=== PATIENT | male | born 1950 | race Caucasian/White ===

== ENCOUNTER → 2016-09-11 | Outpatient (CLI) | payer OTHER | LOC: LAB 08:11 | DX: N18.3 Chronic kidney disease, stage 3 (moderate) (principal); M10.9 Gout, unspecified; I10 Essential (primary) hypertension ==

== ENCOUNTER → 2017-08-07 | Outpatient (CLI) | payer OTHER | LOC: LAB 08:31 | DX: E78.5 Hyperlipidemia, unspecified (principal); Z88.1 Allergy status to other antibiotic agents ==

== ENCOUNTER → 2017-12-11 | Outpatient (CLI) | payer MEDICARE ==
[2017-12-11 08:31] LABS: ALBUMIN 3.8 g/dL (3.5-5.0); BUN/CREATININE RATIO 21.9 (6.0-26.0); POTASSIUM 4.2 mmol/L (3.6-5.0); TOTAL BILIRUBIN 0.4 mg/dL (0.2-1.3); TOTAL PROTEIN 8.1 g/dL (6.3-8.2)
== END ==
LOC: LAB 12-04 08:11
PROVIDERS: Family Medicine
DX: Z00.00 Encounter for general adult medical examination without abnormal findings (principal); I10 Essential (primary) hypertension; N40.0 Benign prostatic hyperplasia without lower urinary tract symptoms; M10.9 Gout, unspecified; J30.9 Allergic rhinitis, unspecified; Z23 Encounter for immunization; Z95.0 Presence of cardiac pacemaker

== ENCOUNTER → 2017-12-13 | Day surgery (SDC) | payer MEDICARE | LOC: MSO 08:10 | DX: Z12.11 Encounter for screening for malignant neoplasm of colon (principal); D12.3 Benign neoplasm of transverse colon; K57.30 Diverticulosis of large intestine without perforation or abscess without bleeding; I10 Essential (primary) hypertension; Z95.0 Presence of cardiac pacemaker; M10.9 Gout, unspecified; Z79.82 Long term (current) use of aspirin; Z79.899 Other long term (current) drug therapy | CPT/HCPCS: 00811; J2704; J7120 ==

== ENCOUNTER → 2018-10-01 | Outpatient (CLI) | payer MEDICARE | LOC: LAB 08:13 | DX: I25.10 Atherosclerotic heart disease of native coronary artery without angina pectoris (principal) ==

== ENCOUNTER → 2019-02-04 | Outpatient (CLI) | payer MEDICARE ==
[2019-02-04 08:41] LABS: ALBUMIN 3.8 g/dL (3.4-4.8)
[2019-02-04 08:42] LABS: POTASSIUM 4.2 mmol/L (3.5-5.1)
[2019-02-04 08:43] LABS: CALCIUM 9.4 mg/dL (8.3-10.5)
[2019-02-04 08:44] LABS: TOTAL PROTEIN 8.5 g/dL (6.2-8.1)
[2019-02-04 08:46] LABS: TOTAL BILIRUBIN 0.4 mg/dL (0.2-1.2)
== END ==
LOC: LAB 07:22
PROVIDERS: Family Medicine
DX: Z00.00 Encounter for general adult medical examination without abnormal findings (principal); Z23 Encounter for immunization; J30.1 Allergic rhinitis due to pollen; N40.0 Benign prostatic hyperplasia without lower urinary tract symptoms; M10.9 Gout, unspecified; I10 Essential (primary) hypertension; Z95.0 Presence of cardiac pacemaker

== ENCOUNTER → 2019-02-06 | Outpatient (CLI) | payer MEDICARE ==
[2019-02-06 17:55] LABS: URINE APPEARANCE CLEAR; URINE BILIRUBIN NEGATIVE (NEGATIVE); URINE BLOOD NEGATIVE (NEGATIVE); URINE COLOR YELLOW; URINE GLUCOSE NEGATIVE (NEGATIVE); URINE KETONE NEGATIVE (NEGATIVE); URINE NITRATE NEGATIVE (NEGATIVE); URINE PROTEIN(semi-quant) TRACE mg/dL (NEGATIVE); URINE UROBILINOGEN NORMAL (NORMAL)
[2019-02-06 17:56] LABS: URINE LEUKOCYTE ESTERASE NEGATIVE (NEGATIVE); URINE MUCUS PRESENT (NOT PRESENT)
== END ==
LOC: LAB 17:34
PROVIDERS: Family Medicine
DX: I12.9 Hypertensive chronic kidney disease with stage 1 through stage 4 chronic kidney disease, or unspecified chronic kidney disease (principal); N18.3 Chronic kidney disease, stage 3 (moderate); M10.9 Gout, unspecified

== ENCOUNTER → 2019-10-03 | Outpatient (CLI) | payer MEDICARE | LOC: LAB 07:54 | DX: I10 Essential (primary) hypertension (principal) ==

== ENCOUNTER → 2020-02-05 | Outpatient (CLI) | payer MEDICARE ==
[2020-02-05 08:10] LABS: POTASSIUM 4.2 mmol/L (3.5-5.1)
[2020-02-05 08:11] LABS: ALBUMIN 3.8 g/dL (3.4-4.8)
[2020-02-05 08:12] LABS: CALCIUM 9.3 mg/dL (8.3-10.5)
[2020-02-05 08:13] LABS: TOTAL PROTEIN 7.5 g/dL (6.2-8.1)
[2020-02-05 08:15] LABS: TOTAL BILIRUBIN 0.4 mg/dL (0.2-1.2)
== END ==
LOC: LAB 07:49
DX: Z00.00 Encounter for general adult medical examination without abnormal findings (principal); Z13.6 Encounter for screening for cardiovascular disorders; Z23 Encounter for immunization; I10 Essential (primary) hypertension; N40.0 Benign prostatic hyperplasia without lower urinary tract symptoms; M10.9 Gout, unspecified; J30.1 Allergic rhinitis due to pollen; Z95.0 Presence of cardiac pacemaker

== ENCOUNTER → 2020-05-14 | Outpatient (CLI) | payer MEDICARE ==
[2020-05-14 09:09] LABS: POTASSIUM 4.5 mmol/L (3.5-5.1)
[2020-05-14 09:10] LABS: CALCIUM 9.9 mg/dL (8.3-10.5)
== END ==
LOC: LAB 08:48
PROVIDERS: Family Medicine
DX: N18.31 Chronic kidney disease, stage 3a (principal); M10.9 Gout, unspecified

== ENCOUNTER → 2020-06-06 | Outpatient (CLI) | payer MEDICARE | LOC: RAD 08:24 | DX: Q61.3 Polycystic kidney, unspecified (principal); N28.81 Hypertrophy of kidney; K76.89 Other specified diseases of liver ==

== ENCOUNTER → 2020-07-09 | Outpatient (CLI) | payer MEDICARE ==
[2020-07-09 08:24] LABS: HEMATOCRIT 39.7 % (42.0-52.0); HEMOGLOBIN 12.8 g/dL (13.5-18.0); MEAN CELL VOLUME 93 fl (78-100); MEAN CORPUSCULAR HEMOGLOBIN 30 pg (27-31); MEAN CORPUSCULAR HGB CONC 32 g/dL (33-37); MEAN PLATELET VOLUME 8.6 fl (7.4-10.4); PLATELET COUNT 179 K/mm3 (130-400); RED BLOOD COUNT 4.26 M/mm3 (4.20-5.60); RED CELL DISTRIBUTION WIDTH 13.2 % (11.5-14.5); WHITE BLOOD COUNT 5.6 K/mm3 (4.8-10.8)
[2020-07-09 08:32] LABS: URINE APPEARANCE CLEAR; URINE BILIRUBIN NEGATIVE (NEGATIVE); URINE BLOOD 50 ery/uL (NEGATIVE); URINE COLOR YELLOW; URINE GLUCOSE NEGATIVE (NEGATIVE); URINE KETONE NEGATIVE (NEGATIVE); URINE LEUKOCYTE ESTERASE NEGATIVE (NEGATIVE); URINE NITRATE NEGATIVE (NEGATIVE); URINE PROTEIN(semi-quant) 1+ mg/dL (NEGATIVE); URINE UROBILINOGEN NORMAL (NORMAL)
[2020-07-09 08:34] LABS: ALBUMIN 3.8 g/dL (3.4-4.8); POTASSIUM 4.4 mmol/L (3.5-5.1)
[2020-07-09 08:37] LABS: TOTAL PROTEIN 7.8 g/dL (6.2-8.1)
[2020-07-09 08:38] LABS: TOTAL BILIRUBIN 0.6 mg/dL (0.2-1.2)
[2020-07-09 08:57] LABS: LYMPHOCYTE 27 % (20-51); MONOCYTE 14 % (3-10); NEUTROPHILS 52 % (42-75)
== END ==
LOC: LAB 07:48
PROVIDERS: Internal Medicine Nephrology
DX: I12.9 Hypertensive chronic kidney disease with stage 1 through stage 4 chronic kidney disease, or unspecified chronic kidney disease (principal); N18.32 Chronic kidney disease, stage 3b; N20.0 Calculus of kidney; N40.1 Benign prostatic hyperplasia with lower urinary tract symptoms

== ENCOUNTER → 2021-01-10 | Outpatient (CLI) | payer MEDICARE ==
[2021-01-10 10:00] LABS: POTASSIUM 4.7 mmol/L (3.5-5.1)
[2021-01-10 10:01] LABS: CALCIUM 9.5 mg/dL (8.3-10.5)
== END ==
LOC: LAB 09:02
PROVIDERS: Internal Medicine Nephrology
DX: N20.0 Calculus of kidney (principal); M10.9 Gout, unspecified; I12.9 Hypertensive chronic kidney disease with stage 1 through stage 4 chronic kidney disease, or unspecified chronic kidney disease; N18.31 Chronic kidney disease, stage 3a

== ENCOUNTER → 2021-02-20 | Outpatient (CLI) | payer MEDICARE ==
[2021-02-20 08:27] LABS: POTASSIUM 4.1 mmol/L (3.5-5.1)
[2021-02-20 08:28] LABS: CALCIUM 10.5 mg/dL (8.3-10.5)
[2021-02-20 08:30] LABS: TOTAL PROTEIN 8.2 g/dL (6.2-8.1)
[2021-02-20 08:32] LABS: TOTAL BILIRUBIN 0.5 mg/dL (0.2-1.2)
== END ==
LOC: LAB 07:38
PROVIDERS: Family Medicine
DX: Z13.220 Encounter for screening for lipoid disorders (principal); N40.0 Benign prostatic hyperplasia without lower urinary tract symptoms; M10.9 Gout, unspecified; I10 Essential (primary) hypertension

== ENCOUNTER 2021-08-19 22:58 | Emergency (ER) | payer MEDICARE ==
[~2021-08-19] VITALS: Ht 172.7 cm; Wt 113.6 kg
[2021-08-19] MEDS ORDERED: XARELTO20 MG PO (23:19)
[2021-08-19] MEDS ORDERED: NORVASC 5MG5 MG/TAB PO (23:19)
[2021-08-19] MEDS ORDERED: VITAMIN D325 MC6 PO (23:19)
[2021-08-19] MEDS ORDERED: ALLEGRA ALLERG180 MG PO (23:20)
[2021-08-19] MEDS ORDERED: BENICAR20 MG PO (23:20)
[2021-08-19] MEDS ORDERED: LIPITOR 40MG TA40 MG PO (23:20)
[2021-08-19] MEDS ORDERED: ALLOPURINOL300 M1 PO (23:20)
[2021-08-19 23:54] LABS: URINE COLOR BLOODY
[2021-08-19 23:55] LABS: URINE APPEARANCE BLOODY; URINE BILIRUBIN NEGATIVE (NEGATIVE); URINE BLOOD 250 ery/uL (NEGATIVE); URINE KETONE NEGATIVE (NEGATIVE); URINE NITRATE NEGATIVE (NEGATIVE); URINE PROTEIN(semi-quant) 3+ (NEGATIVE); URINE UROBILINOGEN NORMAL (NORMAL)
[2021-08-20 00:20] LABS: BASO # 0.03 K/mm3 (0.02-0.10); EOS # 0.26 K/mm3 (0.04-0.40); EOS % 3.9 % (0.0-4.0); HEMATOCRIT 35.6 % (42.0-52.0); HEMOGLOBIN 11.9 g/dL (13.5-18.0); LYMPH# 1.49 K/mm3 (1.50-4.00); MEAN CELL VOLUME 92 fl (78-100); MEAN CORPUSCULAR HEMOGLOBIN 31 pg (27-31); MEAN CORPUSCULAR HGB CONC 33 g/dL (33-37); MEAN PLATELET VOLUME 9.1 fl (7.4-10.4); MONO # 0.84 K/mm3 (0.20-0.80); NEU # 3.96 K/mm3 (1.40-6.50); PLATELET COUNT 193 K/mm3 (130-400); RED BLOOD COUNT 3.86 M/mm3 (4.20-5.60); RED CELL DISTRIBUTION WIDTH 13.4 % (11.5-14.5); WHITE BLOOD COUNT 6.6 K/mm3 (4.8-10.8)
[2021-08-20 00:25] LABS: ALBUMIN 3.8 g/dL (3.4-4.8)
[2021-08-20 00:27] LABS: CALCIUM 9.4 mg/dL (8.3-10.5)
[2021-08-20 00:28] LABS: TOTAL PROTEIN 7.4 g/dL (6.2-8.1)
[2021-08-20 00:30] LABS: TOTAL BILIRUBIN 0.2 mg/dL (0.2-1.2)
[2021-08-20 00:32] LABS: PARTIAL THROMBOPLASTIN TIME 31.9 SECONDS (21.0-32.0)
[2021-08-20 06:27] LABS: HEMATOCRIT 36.1 % (42.0-52.0); HEMOGLOBIN 12.1 g/dL (13.5-18.0)
[2021-08-20 07:33] VITALS: BP 146/78
== END 2021-08-20 07:33 | disposition home or self-care (01) ==
LOC: ED 22:58
PROVIDERS: Nurse Practitioner
DX: S37.22XA Contusion of bladder, initial encounter (principal); X58.XXXA Exposure to other specified factors, initial encounter
CPT/HCPCS: J7030

== ENCOUNTER → 2021-10-13 | Outpatient (CLI) | payer MEDICARE ==
[~2021-10-13] MED LIST: ALLEGRA ALLERG180 MG PO; ALLOPURINOL300 M1 PO; BENICAR20 MG PO; LIPITOR 40MG TA40 MG PO; NORVASC 5MG5 MG/TAB PO; VITAMIN D325 MC6 PO; XARELTO20 MG PO
[2021-10-13 12:34] LABS: ALBUMIN 4.1 g/dL (3.4-4.8)
[2021-10-13 12:36] LABS: CALCIUM 9.2 mg/dL (8.3-10.5)
== END ==
LOC: LAB 10:11
PROVIDERS: Internal Medicine Nephrology
DX: Q61.3 Polycystic kidney, unspecified (principal); N25.81 Secondary hyperparathyroidism of renal origin; N18.32 Chronic kidney disease, stage 3b

== ENCOUNTER 2021-11-19 12:16 | Emergency (ER) | payer MEDICARE ==
[2021-11-19] MEDS ORDERED: ELIQUIS5 MG PO (12:30)
[2021-11-19] MEDS ORDERED: AMLODIPINE BESYL5 MG PO (12:30)
[2021-11-19] MEDS ORDERED: ATENOLOL50 MG PO (12:30)
[2021-11-19] MEDS ORDERED: TRAMADOL 50 MG TAB PO (13:33)
[2021-11-19 14:03] VITALS: BP 140/86
== END 2021-11-19 13:36 | disposition home or self-care (01) ==
LOC: ED 12:16
DX: R10.31 Right lower quadrant pain (principal); I48.20 Chronic atrial fibrillation, unspecified; Z79.01 Long term (current) use of anticoagulants; W11.XXXA Fall on and from ladder, initial encounter

== ENCOUNTER → 2021-12-05 | Outpatient (CLI) | payer MEDICARE ==
[~2021-12-05] MED LIST changes: +AMLODIPINE BESYL5 MG PO; +ATENOLOL50 MG PO; +ELIQUIS5 MG PO; +TRAMADOL 50 MG TAB PO
[2021-12-05 15:59] LABS: POTASSIUM 4.3 mmol/L (3.5-5.1)
[2021-12-05 16:01] LABS: CALCIUM 10.2 mg/dL (8.3-10.5)
== END ==
LOC: LAB 15:07
PROVIDERS: Family Medicine
DX: N18.9 Chronic kidney disease, unspecified (principal); M25.551 Pain in right hip

== ENCOUNTER → 2022-04-29 | Outpatient (CLI) | payer MEDICARE ==
[2022-04-29 07:39] LABS: POTASSIUM 4.8 mmol/L (3.5-5.1)
[2022-04-29 07:40] LABS: ALBUMIN 3.9 g/dL (3.4-4.8)
[2022-04-29 07:41] LABS: CALCIUM 9.4 mg/dL (8.3-10.5)
[2022-04-29 07:42] LABS: TOTAL PROTEIN 7.6 g/dL (6.2-8.1)
[2022-04-29 07:44] LABS: TOTAL BILIRUBIN 0.2 mg/dL (0.2-1.2)
== END ==
LOC: LAB 07:09
PROVIDERS: Family Medicine
DX: Z13.220 Encounter for screening for lipoid disorders (principal); I12.9 Hypertensive chronic kidney disease with stage 1 through stage 4 chronic kidney disease, or unspecified chronic kidney disease; N18.32 Chronic kidney disease, stage 3b; N25.81 Secondary hyperparathyroidism of renal origin; Q61.3 Polycystic kidney, unspecified; M10.9 Gout, unspecified

== ENCOUNTER → 2023-04-05 | Outpatient (CLI) | payer MEDICARE ==
[2023-04-05 16:29] LABS: ALBUMIN 4.2 g/dL (3.4-4.8)
[2023-04-05 16:30] LABS: CALCIUM 9.6 mg/dL (8.3-10.5)
[2023-04-05 16:32] LABS: TOTAL PROTEIN 8.2 g/dL (6.2-8.1)
[2023-04-05 16:33] LABS: BASO # 0.04 K/mm3 (0.02-0.10); EOS # 0.23 K/mm3 (0.04-0.40); EOS % 3.5 % (0.0-4.0); HEMATOCRIT 40.3 % (42.0-52.0); HEMOGLOBIN 13.5 g/dL (13.5-18.0); LYMPH# 1.22 K/mm3 (1.50-4.00); MEAN CELL VOLUME 93 fl (78-100); MEAN CORPUSCULAR HEMOGLOBIN 31 pg (27-31); MEAN CORPUSCULAR HGB CONC 34 g/dL (33-37); MEAN PLATELET VOLUME 9.2 fl (7.4-10.4); MONO # 0.71 K/mm3 (0.20-0.80); NEU # 4.29 K/mm3 (1.40-6.50); PLATELET COUNT 185 K/mm3 (130-400); RED BLOOD COUNT 4.34 M/mm3 (4.20-5.60); RED CELL DISTRIBUTION WIDTH 13.6 % (11.5-14.5); WHITE BLOOD COUNT 6.5 K/mm3 (4.8-10.8)
[2023-04-05 16:34] LABS: TOTAL BILIRUBIN 0.5 mg/dL (0.2-1.2)
[2023-04-05 16:38] LABS: MAGNESIUM 1.88 mg/dL (1.60-2.60)
[2023-04-05 16:44] LABS: PROTHROMBIN TIME 10.1 SECONDS (9.0-12.0)
[2023-04-05 16:51] LABS: URINE APPEARANCE CLEAR; URINE BILIRUBIN NEGATIVE (NEGATIVE); URINE BLOOD 250 ery/uL (NEGATIVE); URINE COLOR YELLOW; URINE GLUCOSE NEGATIVE (NEGATIVE); URINE KETONE NEGATIVE (NEGATIVE); URINE LEUKOCYTE ESTERASE NEGATIVE (NEGATIVE); URINE NITRATE NEGATIVE (NEGATIVE); URINE PROTEIN(semi-quant) 3+ (NEGATIVE); URINE UROBILINOGEN NORMAL (NORMAL)
== END ==
LOC: RAD 16:06
PROVIDERS: Internal Medicine
DX: Z01.818 Encounter for other preprocedural examination (principal)

== ENCOUNTER → 2023-04-09 | Outpatient (CLI) | payer MEDICARE | LOC: RAD 09:00 | DX: M79.89 Other specified soft tissue disorders (principal); Z86.718 Personal history of other venous thrombosis and embolism ==

== ENCOUNTER → 2023-07-22 | Outpatient (CLI) | payer MEDICARE ==
[2023-07-22 08:43] LABS: CALCIUM 9.6 mg/dL (8.3-10.5)
[2023-07-22 23:28] LABS: TESTOSTERONE 516 ng/dL (221-716)
[2023-07-22 23:36] LABS: HEPATITIS C VIRUS ANTIBODY Negative (Negative)
== END ==
LOC: LAB 08:05
PROVIDERS: Internal Medicine
DX: Z11.59 Encounter for screening for other viral diseases (principal); Z12.5 Encounter for screening for malignant neoplasm of prostate; I10 Essential (primary) hypertension; K90.9 Intestinal malabsorption, unspecified; F52.21 Male erectile disorder; R73.9 Hyperglycemia, unspecified

== ENCOUNTER → 2023-08-07 | Outpatient (CLI) | payer MEDICARE | LOC: RAD 15:31 | DX: M18.12 Unilateral primary osteoarthritis of first carpometacarpal joint, left hand (principal) ==

== ENCOUNTER → 2023-11-02 | Outpatient (CLI) | payer MEDICARE ==
[2023-12-23 09:55] LABS: ALBUMIN 4.1 g/dL (3.4-4.8); CALCIUM 9.4 mg/dL (8.3-10.5); TOTAL BILIRUBIN 0.4 mg/dL (0.2-1.2); TOTAL PROTEIN 7.5 g/dL (6.2-8.1)
== END ==
LOC: LAB 08:00
PROVIDERS: Internal Medicine Nephrology
DX: Q61.3 Polycystic kidney, unspecified (principal); N18.32 Chronic kidney disease, stage 3b

== ENCOUNTER → 2023-11-17 | Outpatient (CLI) | payer MEDICARE ==
[2024-01-04 10:54] LABS: CALCIUM 9.4 mg/dL (8.3-10.5)
== END ==
LOC: LAB 08:05
DX: I25.10 Atherosclerotic heart disease of native coronary artery without angina pectoris (principal); I11.9 Hypertensive heart disease without heart failure; I42.8 Other cardiomyopathies; E78.2 Mixed hyperlipidemia

== ENCOUNTER → 2023-12-20 | Outpatient (CLI) | payer MEDICARE ==
[2023-12-20 08:44] LABS: ALBUMIN 4.2 g/dL (3.4-4.8)
[2023-12-20 08:45] LABS: CALCIUM 9.6 mg/dL (8.3-10.5)
[2023-12-20 08:46] LABS: TOTAL PROTEIN 7.5 g/dL (6.2-8.1)
[2023-12-20 08:48] LABS: TOTAL BILIRUBIN 0.3 mg/dL (0.2-1.2)
== END ==
LOC: LAB 08:25
PROVIDERS: Internal Medicine Nephrology
DX: N18.32 Chronic kidney disease, stage 3b (principal); R80.8 Other proteinuria

== ENCOUNTER → 2024-02-09 | Outpatient (CLI) | payer MEDICARE ==
[2024-02-09 08:19] LABS: CALCIUM 10.1 mg/dL (8.3-10.5)
== END ==
LOC: LAB 07:49
DX: I11.9 Hypertensive heart disease without heart failure (principal); I25.10 Atherosclerotic heart disease of native coronary artery without angina pectoris; E78.2 Mixed hyperlipidemia; I42.8 Other cardiomyopathies

== ENCOUNTER → 2024-03-03 | Outpatient (CLI) | payer MEDICARE ==
[2024-03-03 09:52] LABS: CALCIUM 9.8 mg/dL (8.3-10.5)
== END ==
LOC: LAB 08:05
PROVIDERS: Internal Medicine Nephrology
DX: N18.32 Chronic kidney disease, stage 3b (principal); N25.81 Secondary hyperparathyroidism of renal origin; Q61.3 Polycystic kidney, unspecified

== ENCOUNTER → 2024-06-05 | Outpatient (CLI) | payer MEDICARE ==
[2024-06-05 11:05] LABS: BASO # 0.02 K/mm3 (0.02-0.10); EOS # 0.15 K/mm3 (0.04-0.40); EOS % 2.9 % (0.0-4.0); HEMATOCRIT 38.9 % (42.0-52.0); LYMPH# 0.81 K/mm3 (1.50-4.00); MEAN CELL VOLUME 94 fl (78-100); MEAN CORPUSCULAR HEMOGLOBIN 31 pg (27-31); MEAN CORPUSCULAR HGB CONC 33 g/dL (33-37); MEAN PLATELET VOLUME 8.8 fl (7.4-10.4); MONO # 0.55 K/mm3 (0.20-0.80); NEU # 3.55 K/mm3 (1.40-6.50); PLATELET COUNT 173 K/mm3 (130-400); RED BLOOD COUNT 4.16 M/mm3 (4.20-5.60); RED CELL DISTRIBUTION WIDTH 13.5 % (11.5-14.5); WHITE BLOOD COUNT 5.1 K/mm3 (4.8-10.8)
[2024-06-05 11:13] LABS: ALBUMIN 4.3 g/dL (3.4-4.8)
[2024-06-05 11:14] LABS: CALCIUM 10.4 mg/dL (8.3-10.5)
[2024-06-05 11:16] LABS: TOTAL PROTEIN 8.1 g/dL (6.2-8.1)
[2024-06-05 11:18] LABS: TOTAL BILIRUBIN 0.4 mg/dL (0.2-1.2)
[2024-06-05 11:22] LABS: MAGNESIUM 2.25 mg/dL (1.60-2.60)
== END ==
LOC: LAB 10:53
PROVIDERS: Internal Medicine
DX: Z12.5 Encounter for screening for malignant neoplasm of prostate (principal); I10 Essential (primary) hypertension; K90.9 Intestinal malabsorption, unspecified; M10.9 Gout, unspecified; R73.9 Hyperglycemia, unspecified

== ENCOUNTER → 2024-07-04 | Outpatient (CLI) | payer MEDICARE ==
[2024-07-04 08:27] LABS: CALCIUM 9.3 mg/dL (8.3-10.5)
== END ==
LOC: LAB 08:04
PROVIDERS: Internal Medicine Nephrology
DX: N18.32 Chronic kidney disease, stage 3b (principal); Q61.3 Polycystic kidney, unspecified